=== PATIENT | female | born 1940 | race Caucasian/White ===

== ENCOUNTER 2023-01-10 20:09 | Emergency (ER) | payer MEDICARE, OTHER ==
[2023-01-10] MEDS ORDERED: fentaNYL 50 MCG/ML SDV IVPUSH ONE (20:58)
[2023-01-10] MEDS ORDERED: Sodium Chloride 0.9% 10 ML Syringe FLUSH PRN (20:58)
[2023-01-10] MEDS ORDERED: Methocarbamol 500 MG Tab PO ONE (20:59)
[2023-01-10 21:23] LABS: BASOPHILS PERCENT AUTO 0.2 % (0.1-1.3); EOSINOPHILS ABSOLUTE AUTO 0.12 K/uL (0.00-0.40); EOSINOPHILS PERCENT AUTO 1.1 % (0.0-5.4); HEMATOCRIT 43.7 % (34.3-46.0); HEMOGLOBIN 15.2 g/dL (11.2-15.5); IMMATURE GRAN ABSOLUTE AUTO 0.13 K/uL (0.00-0.23); IMMATURE GRAN PERCENT AUTO 1.2 % (0.0-0.7); LYMPHOCYTES ABSOLUTE AUTO 0.72 K/uL (0.8-3.3); LYMPHOCYTES PERCENT AUTO 6.4 % (11.4-47.7); MEAN CORPUSCULAR HEMOGLOBIN 30.8 pg (31.6-35.5); MEAN CORPUSCULAR HGB CONC 34.8 g/dL (31.6-35.5); MEAN CORPUSCULAR VOLUME 88.6 fL (81.4-99.0); MONOCYTES ABSOLUTE AUTO 0.61 K/uL (0.20-0.90); MONOCYTES PERCENT AUTO 5.4 % (3.3-12.6); NEUTROPHILS ABSOLUTE AUTO 9.63 K/uL (1.0-7.6); NEUTROPHILS PERCENT AUTO 85.7 % (40.0-78.1); PLATELET COUNT,PLT 252 K/uL (130-375); RED BLOOD CELL COUNT 4.93 M/uL (3.77-5.24); WHITE BLOOD CELL COUNT,WBC 11.2 K/uL (3.2-11.0)
[2023-01-10 21:24] LABS: BASOPHILS ABSOLUTE AUTO 0.02 K/uL (0.00-0.10)
[2023-01-10 21:47] LABS: ALANINE AMINOTRANSFERASE,ALT 36 U/L (12-78); ALBUMIN 3.8 g/dL (3.4-5.0); ALKALINE PHOSPHATASE 137 U/L (46-116); ASPARTATE AMNIOTRANSFERASE,AST 35 U/L (15-37); BILIRUBIN TOTAL 0.6 mg/dL (0.2-1.0); BLOOD UREA NITROGEN,BUN 21 mg/dL (7-18); CARBON DIOXIDE,CO2 25 mmol/L (21-32); CHLORIDE,CL 101 mmol/L (100-108); CREATININE 0.8 mg/dL (0.6-1.0); EST CRCL DRUG DOSING (CG) 42.14 mL/min; ESTIMATED GFR 73 mL/min (>60); GLUCOSE RANDOM 124 mg/dL (74-106); PROTEIN TOTAL,TP 7.8 g/dL (6.4-8.2); SODIUM,NA 138 mmol/L (140-148)
[2023-01-10 21:49] LABS: TROPONIN I HIGH SENSITIVITY 62.6 pg/mL (<=60.3)
[2023-01-10] MEDS ORDERED: Acetaminophen/HYDROcodone 325-5 MG Tab PO ONE (23:21)
[2023-01-10] MEDS ORDERED: Gabapentin 100 MG Cap PO ONE (23:21)
[2023-01-11] MEDS ORDERED: Gabapentin 100 MG Cap PO ONE (00:40)
== END 2023-01-11 01:25 | disposition home or self-care (01) ==
LOC: JP.ED 20:09
DX: S52.251A Displaced comminuted fracture of shaft of ulna, right arm, initial encounter for closed fracture (principal); S32.020A Wedge compression fracture of second lumbar vertebra, initial encounter for closed fracture; R55 Syncope and collapse; Z86.16 Personal history of COVID-19; Z79.899 Other long term (current) drug therapy; W18.09XA Striking against other object with subsequent fall, initial encounter
CPT/HCPCS: 29125; 36415; 72131; 73110; 76377; 80053; 84484; 85025; 93005; 96374; 99284; A9270; J3010; J3490